=== PATIENT | male | born 1980 | race Caucasian/White ===

== ENCOUNTER 2024-02-03 12:38 | Outpatient (OUT) | payer OTHER, SELFPAY ==
[2024-02-03 13:48] LABS: BUN Creatinine Ratio 10.2; Calcium 8.9 mg/dL (8.5-10.1); Carbon Dioxide 32.6 mmol/L (21.0-32.0); Chloride 99 mmol/L (98-107); Estimated GFR (African America >60 (>=60); Estimated GFR (Non-African Ame >60 (>=60); Glucose 100 mg/dL (74-106); Potassium 3.6 mmol/L (3.5-5.1); Sodium 136 mmol/L (136-145)
== END 2024-02-03 12:39 | disposition home or self-care (01) ==
LOC: PST 12:43
PROVIDERS: Visit Provider Orthopaedic Surgery
DX: Z01.812 Encounter for preprocedural laboratory examination (principal); S46.211A Strain of muscle, fascia and tendon of other parts of biceps, right arm, initial encounter; I10 Essential (primary) hypertension
CPT/HCPCS: 80048

== ENCOUNTER 2024-02-05 14:07 | Day surgery (SDC) | payer OTHER, SELFPAY ==
[2024-02-03 12:54] VITALS: BP 115/81; PULSE 83; TEMP 36.4; O2SAT 98; BMI 29.7
[2024-02-05] VITALS (12 sets, daily range): BP systolic 115–136; BP diastolic 81–98; PULSE 91–105; TEMP 36.3–36.9; O2SAT 92–96; BMI 29.0
[2024-02-05 14:15] LABS: Basophils Absolute Auto 0.1 10^3/uL (0.0-0.1); Basophils Percent Auto 0.8 % (0.2-2.0); Eosinophils Absolute Auto 0.3 10^3/uL (0.0-0.7); Eosinophils Percent Auto 5.5 % (0.9-7.0); Hematocrit 43.9 % (42.0-54.0); Hemoglobin 15.2 g/dL (14.0-18.0); Immature Granulocytes Abs Auto 0.01 10^3/uL (0.00-0.03); Immature Granulocytes Pct Auto 0.2 % (0.0-0.5); Lymphocytes Absolute Auto 1.8 10^3/uL (1.2-3.8); Lymphocytes Percent Auto 29.7 % (20.5-60.0); Mean Corpuscular HGB Conc 34.6 g/dL (29.9-35.2); Mean Corpuscular Hemoglobin 29.2 pg (25.9-34.0); Mean Corpuscular Volume 84.4 fL (80.0-94.0); Mean Platelet Volume 9.6 fL (9.5-13.5); Monocytes Absolute Auto 0.4 10^3/uL (0.3-0.8); Monocytes Percent Auto 6.8 % (1.7-12.0); Neutrophils Absolute Auto 3.5 10^3/uL (1.4-6.5); Platelet Count 278 10^3/uL (150-450); White Blood Count 6.2 10^3/uL (4.0-11.0)
[2024-02-05] MEDS: LACTATED RINGER'S SOLUTION 1,000 ML 50 ML IV (14:38)
[2024-02-05] MEDS: CEFAZOLIN SODIUM/DEXTROSE,ISO 2 GM/50 ML PIGGYBACK IV (16:03)
--- NOTE | 2024-02-05 16:15 | P.ORPRC_ITS ---
Procedure Note Date of procedure: 02/05/24 Pre-op diagnosis: Right distal biceps tendon rupture Post-op diagnosis: same as pre-op Procedure: Operation: Repair right distal biceps tendon Detailed description of procedure: After informed consent was obtained the patient was brought to the operating room where a general anesthetic was administered. The muscle was retracted significantly and this was milked and held down and then a well-padded proximal arm tourniquet was placed. The right arm was prepped and draped in the usual sterile fashion. The arm was elevated, exsanguinated, and the tourniquet was inflated to 225 mmHg. A 4 cm incision was made 3 cm distal to the antecubital elbow flexion crease. Blunt dissection was carried down through soft tissue and fascia was bluntly dissected. And it could be visualized proximal to the elbow joint. A Lizbet was used to grab the tendon and then by traction to it. After 7 to 8 minutes of traction the tendon was lengthened and able to be pulled out of the wound. A #2 running locking FiberWire suture was placed for 3 cm. Tendon was then sized to 7 mm. 2 suture ends were next placed to the Arthrex biceps button in standard fashion. Next blunt dissection was carried down to the radial tuberosity. The guidepin for the Synthes distal biceps was then placed in a bicortical fashion. A unicortical 8 mm tunnel was created over the top. Copious irrigation was performed to remove bony debris. The biceps button was then passed to the far cortex and flipped. Sutures were then tied. This required 80 degrees of elbow flexion to get the tendon reduced. Sutures were then tied. This was then alfie nforced with a 7 x 10 mm peek Arthrex interference screw. Solid fixation was achieved. Tourniquet was deflated. Wounds were irrigated. Wounds were repaired in standard fashion with absorbable suture. Sterile dressing was placed. A posterior fiberglass splint was placed. Patient was awakened and brought to the recovery room in stable condition. There are no intraoperative or immediate postoperative complications. Anesthesia: General-LMA Surgeon: Zac Mcallister Estimated blood loss (mL): 5 Pathology: none sent Condition: stable Disposition: PACU
[2024-02-05] MEDS: HYDROMORPHONE HCL 0.5 MG/0.5 ML SYRINGE IV (18:21)
[2024-02-05] MEDS: OXYCODONE HCL/ACETAMINOPHEN 5MG/325MG 2 TAB PO (18:38)
--- NOTE | 2024-02-05 19:12 | PC.NURSE ---
time out performed at 1858 1859 area cleansed 190 prob used to locate area 190 injection of ropivocain 191 completed procedure
== END 2024-02-05 19:45 | disposition home or self-care (01) ==
PROVIDERS: Anesthesiology; Visit Provider Orthopaedic Surgery
PROC: (CPT 1714; principal; 2024-02-05 14:30)
DX: S46.211A Strain of muscle, fascia and tendon of other parts of biceps, right arm, initial encounter (principal); X50.0XXA Overexertion from strenuous movement or load, initial encounter; I10 Essential (primary) hypertension; K21.9 Gastro-esophageal reflux disease without esophagitis
CPT/HCPCS: 24342; 36415; 64418; 76942; 85025; C1713; J0131; J0690; J1100; J1170; J1885; J2405; J2704; J2795; J3010